=== PATIENT | female | born 2000 | race Hispanic/Latino ===

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

== ENCOUNTER → 2019-01-07 | Outpatient (CLI) | payer OTHER ==
[~2019-01-07] MED LIST changes: -DOCU100C16 PO; -FERR325T18 PO; -FOLI1TAB11 PO; -IBUP80TA PO; -LEVO2TA PO; -PERCOCET PO; -SYNT50TA PO
--- NOTE | 2019-01-08 07:20 | REP ---
TWIN OB ULTRASOUND: Real-time sonographic evaluation of the gravid uterus is performed. There is a living intrauterine diamniotic/monochorionic twin gestation. Placenta is posterior and grade 0. There is no previa or abruption. Cervix is closed and measures 3.2 cm in length. The estimated gestational age is 25 weeks 4 days, with concordant growth of each fetus. The estimated date of confinement is 04/27/2019. FETUS A: BPD 65 mm = 26 weeks 3 days, 66th percentile HC 245 mm = 26 weeks 4 days, 70th percentile AC 207 mm = 25 weeks 2 days, 44th percentile FL 49 mm = 26 weeks 2 days, 65th percentile HC/AC ratio 1.18. Estimated weight 859 grams, 49th percentile heart rate 147 beats per minute. Amniotic fluid within normal limits with the deepest pocket of fluid 3.8 cm. S/D ratio: 3.66 RI: 0.73 position: Vertex on the maternal left side. SEEN/GROSSLY UNREMARKABLE Lateral ventricles Yes Posterior fossa Yes Upper lip No Four-chamber heart Yes LVOT Yes RVOT Yes Stomach Yes Cord insertion Yes Three vessel cord Yes Kidneys Yes Bladder Yes Spine Yes FETUS B: BPD 63 mm = 25 weeks 4 days, 49th percentile HC 235 mm = 25 weeks 4 days, 49th percentile AC 209 mm = 25 weeks 3 days, 47th percentile FL 47 mm = 25 weeks 5 days, 53rd percentile HC/AC ratio 1.12. Estimated weight 826 grams 42nd percentile heart rate: 150 beats per minute. S/D ratio: 3.78 RI: 0.74 position: Transverse with head towards the maternal right side. Amniotic fluid within normal limits with the deepest pocket of fluid 4.2 cm. SEEN/GROSSLY UNREMARKABLE Lateral ventricles Yes Posterior fossa Yes Upper lip Yes Four-chamber heart Yes LVOT Yes RVOT Yes Stomach Yes Cord insertion Yes Three vessel cord Yes Kidneys Yes Bladder Yes Spine Yes Electronically Signed by Nick Bhat MD 01/09/2019 07:57 A
== END ==
LOC: M RAD 15:28
PROVIDERS: ATTEND Obstetrics & Gynecology
DX: Z34.82 Encounter for supervision of other normal pregnancy, second trimester (principal)

== ENCOUNTER → 2019-02-04 | Outpatient (CLI) | payer OTHER ==
--- NOTE | 2019-02-04 17:53 | REP ---
TWIN OB ULTRASOUND: Real-time sonographic evaluation of the gravid uterus performed. There is a living diamniotic monochorionic twin gestation. Placenta posterior and fundal and grade 1 with no previa or abruption. Estimated gestational age is 29 weeks 4 days, EDC 04/18/2019. There is concordant growth. Fetus A: BPD 77 mm = 31 weeks 0 days, 69th percentile HC 275 mm = 30 weeks 0 days, 56th percentile AC 252 mm = 29 weeks 3 days, 46th percentile FL 57 mm = 30 weeks 0 days, 56th percentile HC/AC ratio 1.09. Estimated weight 1452 grams, 46th percentile. heart rate 169 beats per minute. Amniotic fluid within normal limits, deepest pocket of fluid 3.7 cm. S/D ratio 2.78 and RI 0.64. Visualized anatomy today includes four chamber heart, left ventricular outflow tract, stomach, cord insertion, three vessel cord, kidneys and bladder which are all grossly unremarkable. position vertex on the maternal left side. Fetus B: BPD 73 mm = 29 weeks 2 days, 41st percentile HC 273 mm = 29 weeks 5 days, 53rd percentile AC 251 mm = 29 weeks 2 days, 45th percentile FL 55 mm = 29 weeks 1 day, 41st percentile HC/AC ratio 1.08. Estimated weight 1375 grams, 36th percentile. heart rate 157 beats per minute. Amniotic fluid within normal limits, deepest pocket of fluid 4 cm. S/D ratio 2.69 and RI 0.63. Visualized anatomy today includes four chamber heart, stomach, cord insertion, three vessel cord, kidneys and bladder which are all grossly unremarkable. position vertex on the maternal right side. IMPRESSION: Appropriate concordant growth as described above. Electronically Signed by Nick Bhat MD 02/05/2019 06:19 P
== END ==
LOC: M RAD 15:14
PROVIDERS: ATTEND Obstetrics & Gynecology
DX: O30.033 Twin pregnancy, monochorionic/diamniotic, third trimester (principal); Z3A.29 29 weeks gestation of pregnancy

== ENCOUNTER 2019-03-01 04:11 | Outpatient (CLI) | payer OTHER ==
[2019-03-01] VITALS (8 sets, daily range): BP systolic 94–118; BP diastolic 46–62
[~2019-03-01] VITALS: Ht 154.9 cm; Wt 78.7 kg
--- NOTE | 2019-03-01 06:44 | IPNPDOC ---
Text Note Date of Service The patient was seen on 03/01/19. NOTE patient is a 18 yo @ 33+1wks with mono/di twins gestation presents to l&d with regular painful contractions that started about 1 hr ago. Patient states she has urge to poop. denies LOF/VB. patient desires to have section for delivery. vitals: normal nad abd: gravid, soft, nt fhtA: 150/mod luisa/pos accel/no decel fhtB: 140/mod va/pos accel/no decel toco:ctx q2-5mins ce: fingertip/50/0, soft, posterior a/p patient with contractions. continue to monitor. recheck in two hours. SARAH MORALES DO Mar 01, 2019 04:38
[2019-03-01] MEDS ORDERED: LACTATED RINGER'S 1000 ML IV STA (06:47)
[2019-03-01 07:36] LABS: HEMATOCRIT 27.4 % (36.0-47.0); HEMOGLOBIN 8.8 g/dl (12.0-15.5); MEAN CORPUSCULAR HEMOGLOBIN 27.8 pg (27.0-33.0); MEAN CORPUSCULAR HGB CONC 32.1 g/dl (32.0-36.5); MEAN CORPUSCULAR VOLUME 86.7 fl (80.0-96.0); PLATELET COUNT, AUTOMATED 180 10^3/uL (150-450); RED BLOOD COUNT 3.16 10^6/uL (4.00-5.40); WHITE BLOOD COUNT 9.8 10^3/uL (4.0-10.0)
[2019-03-01] MEDS: LR 1,000 ML IV SCH ×2 (08:24→16:33)
[2019-03-01] MEDS ORDERED: BACITRACIN OINT 30GM TOP SCH (09:00)
[2019-03-01] MEDS ORDERED: BETAMETHASONE SOLUSPAN 6MG/ML INJ 5ML (J0702) IM SCH ×2 (09:00→21:00)
[2019-03-01 09:23] LABS: HEMATOCRIT 25.6 % (36.0-47.0); MEAN CORPUSCULAR HEMOGLOBIN 27.8 pg (27.0-33.0); MEAN CORPUSCULAR HGB CONC 31.3 g/dl (32.0-36.5); MEAN CORPUSCULAR VOLUME 88.9 fl (80.0-96.0); PLATELET COUNT, AUTOMATED 162 10^3/uL (150-450); RED BLOOD COUNT 2.88 10^6/uL (4.00-5.40)
[2019-03-01 10:23] LABS: ALT/SGPT 8 U/L (12-78); BILIRUBIN,TOTAL 0.3 MG/DL (0.2-1.0); CREATININE FOR GFR 0.52 MG/DL (0.55-1.30); LDH LACTATE DEHYDROGENASE 241 U/L (84-246); URIC ACID 4.8 MG/DL (2.6-6.0)
[2019-03-01 11:36] LABS: TOTAL PROTEIN,RANDOM URINE 51.5 MG/DL (0.0-12.0)
--- NOTE | 2019-03-01 20:19 | IPN ---
DATE: 03/01/2019 This lady is a 18-year-old, 2, para 0 who came in at 33 and one weeks' of gestation with history of monochorionic/diamniotic twins and she was having cramps as well as some irregular type, painful contractions. She had no vaginal bleeding or loss of fluid. On evaluation when she first came in twin A was vertex. heart was 150. Accelerations were noted. No decelerations. Twin B was 140, moderate variability with accelerations noted. On initial admission she was at fingertip, 50%, and soft and very posterior. She was evaluated several hours later and she was having some pelvic pressure and she was reevaluated and found to be loose, 1 cm, 50%, soft, in mid position. The plan was to attempt to make her steroid complete. If she went into active labor, she requested to have an elective primary section and status of GBS is unknown, we would treat her prophylactically. Further evaluation investigation revealed that her CBC initially was 8.8, hematocrit 27.4 and platelets were 180. She had no history of anemia in the past. Reevaluation 2 hours later, her hemoglobin was 8.0, hematocrit 25.6 and platelets were 162 and she was asymptomatic and there was no evidence of bleeding. We elected to evaluate her regarding preeclampsia and on evaluating her chemistry her uric acid was 4.8. Liver enzymes were low. Her urine protein/creatinine ratio was 0.22 with a random creatinine of 187 and total random protein of 51.5. The patient was having intermittent type contractions, basically uterine irritability, and the plan at the present time was to try and make her steroid complete. If so, we would reevaluate the cervix after she is steroid complete, which will take place at 2100 hours, 03/01/2019. The patient is accepting of this plan of management. Neonatology will be notified. At the present time, the babies are no distress. No regular contractions, mostly tightenings, and safe to proceed.
[2019-03-02 01:14] VITALS: BP 113/53
[2019-03-02 06:17] VITALS: BP 101/48
[2019-03-02 06:58] VITALS: BP 97/46
--- NOTE | 2019-03-02 19:31 | DSES ---
DATE OF ADMISSION: 03/01/2019 DATE OF DISCHARGE: 03/02/2019 This lady is a 18-year-old 2, para 0 who came in at 33 weeks and 1 day with history of monochorionic diamniotic twins and she was having some cramps and some uterine irritability and she says she was having painful contractions. She had no vaginal bleeding or loss. She was evaluated initially when she came. Twins were appropriate for size, weight, hearts and accelerations were noted. She did have a fingertip posteriorly 50% and she was evaluated several hours later and found to be 1 cm. The plan of management was to attempt to make her steroid complete. She requested to have a primary section and initially when she was evaluated her CBC showed she had hemoglobin 8.8 and hematocrit 27.4, platelets were 180. After rehydration they redid her CBC and her hemoglobin was 8.0, hematocrit 25.6 and platelets were 162 when there has been no evidence of bleeding. We elected to go ahead and do a pre-eclampsia profile. Her protein/creatinine ratio was 0.23. Rest of the chemistry was normal. Her platelets had dropped somewhat but because of hydration. She was given two lots of steroids to make her steroid complete. She was monitored overnight. She occasionally has a contraction here and there but nothing significant. She also feels pain on one side when the baby moves however this is strictly movement. She slept overnight. She had no evidence of bleeding or cramping. Re-examination this morning basically the cervix is unchanged at 1 cm, very posterior, vertex A, breech B, with no evidence of uterine irritability, as mentioned, occasional contraction. The patient is comfortable in going home. She is planned on discharge for today and has a followup appointment at [facility]. Our plan of management is to keep her as long as possible and should she make 37 weeks, book her for a primary elective section. All questions were answered. The rest of the examination was unremarkable. She was normocephalic, atraumatic. Neck full range of motion. Pupils equal and reactive to light. Distal pulses were symmetric. No evidence of DVT, PE or superficial phlebitis. Chest was clear bilaterally to bases. No wheezes or rhonchi. No CVA tenderness. Abdomen: Appropriate symphysis fundus height. Four quadrant bowel sounds are noted. Again, as mentioned, digital examination is basically with no change in her cervix in the last 24 hours. Blood pressure on discharge was 97/46, respirations were 18, pulse 111, temperature is 98.2. In summary, we have monochorionic diamniotic twins, steroid complete, uterine irritability, dehydration and anemia. The patient will followup in the clinic.
== END 2019-03-02 08:35 | disposition home or self-care (01) ==
LOC: M LDO 04:11
PROVIDERS: ATTEND Obstetrics & Gynecology
DX: O30.033 Twin pregnancy, monochorionic/diamniotic, third trimester (principal); Z3A.33 33 weeks gestation of pregnancy
CPT/HCPCS: 36415; 59025; 82247; 82565; 82570; 83615; 84156; 84450; 84460; 84550; 85027; 86850; 86900; 86901; 96372; G0463; J0702

== ENCOUNTER → 2019-03-04 | Outpatient (CLI) | payer OTHER ==
--- NOTE | 2019-03-05 04:51 | REP ---
Clinical: Twin gestation. Growth evaluation Comparison: 02/04/2019 . Findings: Examination demonstrates diamniotic monochorionic twin gestation. Cervix measures 3.1 cm in length and appears closed. Placenta identified posterior fundally and grade II without evidence for placenta previa. Gestational age by LMP at 33 weeks 4 days with estimated date of delivery 04/18/2019 . TWIN A: Twin A identified in cephalic presentation along the maternal left side. motion is appreciated. Amniotic fluid volume is normal and the deepest pocket measures 3.48 cm. FHR equals 171 beats per minute. Gestational age by current measurements: 34 weeks 2 days . Estimated weight 2380 grams ( 57 percentile). Limited anatomical assessment without obvious abnormality. ------- TWIN B: Twin B identified in transverse (head to maternal left) presentation along the maternal right side. motion is appreciated. Amniotic fluid volume is normal and the deepest pocket measures 3.33 cm. FHR equals 150 beats per minute. Gestational age by current measurements: 32 weeks 5 days . Estimated weight 2177 grams ( 41st percentile). Limited anatomical assessment without obvious abnormality. Impression: Diamniotic monochorionic twin gestation demonstrating growth as described above. No gross abnormalities are identified. Electronically Signed by Matthew Paul MD 03/05/2019 04:43 A
== END ==
LOC: M RAD 15:36
PROVIDERS: ATTEND Obstetrics & Gynecology
DX: Z34.83 Encounter for supervision of other normal pregnancy, third trimester (principal); Z3A.33 33 weeks gestation of pregnancy

== ENCOUNTER → 2019-03-18 | Outpatient (CLI) | payer OTHER ==
--- NOTE | 2019-03-18 20:15 | REP ---
TWIN OB ULTRASOUND: Real-time sonographic evaluation of the gravid uterus is performed. There is a living diamniotic monochorionic twin gestation, estimated gestational age 35 weeks 4 days, EDC 04/18/2019. There is somewhat less than expected growth of both twins. Placenta is fundal and grade 2 with no previa or abruption. Transabdominal measurement of closed cervical length is 2.5 cm. FETUS A: BPD 86 mm = 34 weeks 4 days, 35th percentile HC 313 mm = 35 weeks 1 days, 43rd percentile AC 310 mm = 34 weeks 6 days, 40th percentile FL 70 mm = 35 weeks 5 days, 52nd percentile HC/AC ratio 1.01. Estimated weight 2597 grams, 41st percentile. On prior study of 03/04/2019 estimated weight was at the 57th percentile. heart rate 146 beats per minute. Amniotic fluid within normal limits, deepest pocket of fluid 3.8 cm. S/D ratio 3.66 and RI 0.73. The upper lip, stomach, three vessel cord, kidneys and bladder are visualized and are grossly unremarkable. position is vertex on the maternal left side. FETUS B: BPD 82 mm = 33 weeks 1 day, 14th percentile HC 314 mm = 35 weeks 2 days, 41st percentile AC 305 mm = 34 weeks 3 days, 33rd percentile FL 65 mm = 33 weeks 3 days, 17th percentile HC/AC ratio 1.03. Estimated weight 2350 grams, 24th percentile, on prior study of 03/04/2019, estimated weight was at the 41st percentile. heart rate 143 beats per minute. Amniotic fluid within normal limits, deepest pocket of fluid 4.8 cm. S/D ratio 3.5, RI 0.71. stomach, three vessel cord, kidneys, bladder and spine are visualized and are grossly unremarkable. position vertex on the maternal right side. IMPRESSION: Diamniotic monochorionic twin gestation with somewhat less than expected growth as discussed in detail above, but still within normal range. Electronically Signed by Nick Bhat MD 03/19/2019 03:41 P
== END ==
LOC: M RAD 14:54
PROVIDERS: ATTEND Obstetrics & Gynecology
DX: Z34.83 Encounter for supervision of other normal pregnancy, third trimester (principal); Z3A.35 35 weeks gestation of pregnancy

== ENCOUNTER 2019-03-31 06:56 | Inpatient (IN) | payer OTHER ==
[2019-03-31] VITALS (19 sets, daily range): BP systolic 108–142; BP diastolic 62–87
[~2019-03-31] VITALS: Ht 157.5 cm; Wt 84.1 kg
[~2019-03-31 06:56] MED LIST changes: +FOLI1TAB11 PO; +LEVO2TA PO; +SYNT50TA PO
[2019-03-31] MEDS ORDERED: ceFAZolin SOD 2 GM in IV 1 EA IV ONE (07:45)
[2019-03-31] MEDS ORDERED: BICITRA 30ML SOLN UDC PO ONE (07:45)
[2019-03-31] MEDS ORDERED: LR 500 ML IV SCH (08:00)
[2019-03-31 08:39] LABS: HEMATOCRIT 24.9 % (36.0-47.0); HEMOGLOBIN 7.7 g/dl (12.0-15.5); MEAN CORPUSCULAR HGB CONC 30.9 g/dl (32.0-36.5); MEAN CORPUSCULAR VOLUME 84.1 fl (80.0-96.0); PLATELET COUNT, AUTOMATED 175 10^3/uL (150-450); RED BLOOD COUNT 2.96 10^6/uL (4.00-5.40); WHITE BLOOD COUNT 7.1 10^3/uL (4.0-10.0)
[2019-03-31] MEDS ORDERED: diphenhydrAMINE INJ 50MG/ML VIAL (J1200) IV STA (09:32)
[2019-03-31] MEDS ORDERED: ACETAMINOPHEN 500 MG TAB PO ONE (09:45)
--- NOTE | 2019-03-31 10:02 | IPNPDOC ---
Text Note Date of Service The patient was seen on 03/31/19. NOTE Blood transfusion Pre-op H/H 7.7/24.9, decreased from prior Hgb of 8. I discussed with anesthesia Dr. Peña his recommendation that patient receive 2 units pRBCs now and have 2 units available in the OR. Goal pre-op Hct is >30. Will transfuse 2u pRBCs now and then re-check H/H 1 hour after conclusion of transfusion. IV benadryl and PO tylenol ordered to give prior to transfusion. Discussed with patient recommendation and plan for transfusion and she is amenable. She previously signed consent form in the office. Dr. Marcia Noel MD VS,Mary Ellen, I+O Mary Ellen AARON, I+O Laboratory Tests 03/31/19 08:14 Marcia Noel MD Mar 31, 2019 10:02
[2019-03-31] MEDS ORDERED: BUPIVACAINE HCL 0.25% 30 ML VIAL As Ordered ONE (13:58)
[2019-03-31 14:12] LABS: HEMATOCRIT 28.7 % (36.0-47.0); HEMOGLOBIN 9.1 g/dl (12.0-15.5); MEAN CORPUSCULAR HEMOGLOBIN 26.8 pg (27.0-33.0); MEAN CORPUSCULAR HGB CONC 31.7 g/dl (32.0-36.5); MEAN CORPUSCULAR VOLUME 84.7 fl (80.0-96.0); PLATELET COUNT, AUTOMATED 160 10^3/uL (150-450); RED BLOOD COUNT 3.39 10^6/uL (4.00-5.40); WHITE BLOOD COUNT 7.7 10^3/uL (4.0-10.0)
[2019-03-31] MEDS: LR 1,000 ML IV SCH ×2 (17:00→21:00)
[2019-03-31 17:41] LABS: HEMATOCRIT 30.6 % (36.0-47.0); HEMOGLOBIN 9.8 g/dl (12.0-15.5); MEAN CORPUSCULAR HEMOGLOBIN 26.8 pg (27.0-33.0); MEAN CORPUSCULAR VOLUME 83.8 fl (80.0-96.0); PLATELET COUNT, AUTOMATED 165 10^3/uL (150-450); RED BLOOD COUNT 3.65 10^6/uL (4.00-5.40); WHITE BLOOD COUNT 7.6 10^3/uL (4.0-10.0)
[2019-03-31] MEDS ORDERED: ONDANSETRON 4MG/2ML VIAL (J2405) As Ordered ONE (18:42)
[2019-03-31] MEDS ORDERED: OXYTOCIN INJ 10 UNITS/ML VIAL (J2590) As Ordered ONE (18:42)
[2019-03-31] MEDS ORDERED: KETOROLAC 60 MG/2 ML VIAL (J1885) As Ordered ONE (18:42)
[2019-03-31] MEDS ORDERED: MORPHINE PRES-FREE INJ 10 MG/10 ML VIAL (J2274) As Ordered ONE (18:42)
[2019-03-31] MEDS ORDERED: METOCLOPRAMIDE INJ 10MG/2ML VIAL (J2765) IV PRN (18:47)
[2019-03-31] MEDS ORDERED: diphenhydrAMINE INJ 50MG/ML VIAL (J1200) IV PRN (18:47)
[2019-03-31] MEDS ORDERED: ONDANSETRON 4MG/2ML VIAL (J2405) IV PRN ×2 (18:47→21:00)
[2019-03-31] MEDS ORDERED: NALBUPHINE HCL 10 MG/ML AMP (J2300) IV PRN (18:47)
[2019-03-31] MEDS ORDERED: NALOXONE INJ 0.4 MG/1 ML VIAL (J2310) IV PRN ×2 (18:47)
[2019-03-31] MEDS ORDERED: miSOPROStol 200 MCG TAB (S0191) PR ONE (20:00)
[2019-03-31] MEDS ORDERED: OXYTOCIN DRIP 30 UNITS in IV 1 EA IV SCH (20:24)
[2019-03-31] MEDS ORDERED: MEASLES,MUMPS,RUBELLA VACCINE INJ (MMR-II) (90707) SC SCH (20:30)
[2019-03-31] MEDS ORDERED: PERCOCET 5MG/325MG TAB PO PRN ×3 (20:30→21:00)
[2019-03-31] MEDS ORDERED: RHOGAM 300 MCG (1500 IU) INJ (J2790) IM SCH (20:30)
[2019-03-31] MEDS ORDERED: METHYLERGONOVINE MALEATE 0.2 MG/ML VIAL (J2210) IM ONE (20:30)
[2019-03-31] MEDS ORDERED: OXYTOCIN 30 UNITS IN 0.9% NaCl 500ML IV BAG (J2590) As Ordered ONE (20:55)
[2019-03-31] MEDS ORDERED: HYDROMORPHONE HCL 0.5 MG/ 0.5 ML SYRINGE (J1170 PER 1) IV PRN (21:00)
[2019-03-31] MEDS: DOCUSATE SODIUM 100 MG CAP PO SCH (21:00)
[2019-03-31] MEDS ORDERED: fentaNYL 100 MCG/2 ML INJECTION (J3010) IV PRN (21:00)
[2019-04-01] VITALS (10 sets, daily range): BP systolic 101–120; BP diastolic 54–71
[2019-04-01] MEDS ORDERED: ACETAMINOPHEN *IV* 1,000 MG in IV 1 EA IV ONE (01:00)
[2019-04-01] MEDS ORDERED: PROMETHAZINE INJ 25 MG/ML VIAL (J2550) IV ONE (01:00)
[2019-04-01] MEDS: LR 1,000 ML IV SCH ×3 (01:00→17:00)
[2019-04-01 02:04] LABS: HEMATOCRIT 33.7 % (36.0-47.0); HEMOGLOBIN 10.7 g/dl (12.0-15.5); MEAN CORPUSCULAR HEMOGLOBIN 27.2 pg (27.0-33.0); MEAN CORPUSCULAR HGB CONC 31.8 g/dl (32.0-36.5); MEAN CORPUSCULAR VOLUME 85.8 fl (80.0-96.0); PLATELET COUNT, AUTOMATED 146 10^3/uL (150-450); RED BLOOD COUNT 3.93 10^6/uL (4.00-5.40); WHITE BLOOD COUNT 15.4 10^3/uL (4.0-10.0)
[2019-04-01] MEDS: KETOROLAC 30 MG/ML VIAL (J1885) IV SCH ×3 (02:26→13:53)
[2019-04-01] MEDS ORDERED: ACETAMINOPHEN *IV* 1,000 MG in IV 1 EA IV PRN (03:30)
[2019-04-01] MEDS: DOCUSATE SODIUM 100 MG CAP PO SCH ×2 (07:54→22:28)
[2019-04-01] MEDS: PRENATAL VITAMINS CHEWABLE TABLET PO SCH (07:54)
--- NOTE | 2019-04-01 10:10 | IPNPDOC ---
Progress Note Date of Service: Apr 01, 2019 Day#: 1 Progress Note POD 1 SUBJECT: Alem is a 18yo [id number] s/p uncomplicated PLTCS on 03/31 for mono- di twins at 37wk, doing well post-op/ day # 1. Significantly, she had admission H/H of 7.7/24.9, so surgery was delayed yesterday until Hct was >30 which took 3 units transfusion of pRBCs total. She also received 1 more unit of pRBCs in the OR when she had some atony with continued bleeding (total EBL 800ml). In the OR she received IV pitocin/IM methergine/AR cytotec with then resolution of atony and good uterine tone. H/H was re-checked 6 hours after surgery and was 10.7/33.7 at 0145 last night. Last night Alem struggled with nausea/vomiting and received zofran, reglan and phenergan with then resolution of n/v. Since that time, she has been sleeping. She has not yet ambulated. She is drinking fluids but not yet eating. Bottle feeding by choice. Lochia is minimal. Rivera still in place draining concentrated urine. Pain is well controlled. No f/c/CP/SOB. OBJECTIVE: VITAL SIGNS: Within normal limits, afebrile. Alert and oriented times three. Pale appearing. Abdomen: Fundus firm at U-2. Soft, appropriately tender to palpation with no rebound/guarding. Pfannenstiel incision covered by dry sterile dressing. Extremities: no pain with palpation of calves Labs: Admission H/H: 7.7/24.9 Pre-op H/H (s/p transfusion 3u pRBCs): 9.8/30.6 Post-op H/H: 10.7/33.7 ASSESSMENT: Alem is a 18yo [id number] s/p uncomplicated PLTCS on 03/31 for mono-di twins at 37wk after transfusion of pRBCs to obtain Hct >30, doing well post-op/ day # 1. Vitals within normal limits, afebrile, hemodynamically stable with no evidence of infection. PLAN: 1. Routine post-op care 2. Percocet and Motrin for pain. Colace for bowel regimen. 3. Encourage ambulation and oral hydration 4. Rivera to be removed 24hr post-op with 4hr due to void 5. Ok to shower tonight after taking off outer bandage 6. Repeat CBC tomorrow morning Dr. Marcia Noel MD VS, I&O, 24H, Fishbone Vital Signs/I&O Vital Signs Date Time Temp Pulse Resp B/P (MAP) Pulse Ox O2 Delivery O2 Flow Rate FiO2 04/01/19 05:52 97.8 68 16 110/67 (81) 97 Room Air I&O- Last 24 Hours up to 6 AM 04/01/19 06:00 Intake Total 3675 ml Output Total 2300 ml Balance 1375 ml Laboratory Data 24H LABS Laboratory Tests 2 03/31/19 13:56: Nucleated Red Blood Cells % (auto) 0.8H 03/31/19 17:30: Nucleated Red Blood Cells % (auto) 0.8H 04/01/19 01:44: Nucleated Red Blood Cells % (auto) 0.3H CBC/BMP Laboratory Tests 03/31/19 13:56 03/31/19 17:30 04/01/19 01:44 Marcia Noel MD Apr 01, 2019 10:10
--- NOTE | 2019-04-01 11:20 | RO ---
DATE OF PROCEDURE: 03/31/2019 INDICATIONS FOR OPERATION: Alem is a 18-year-old G1 now P1-0-0-2 who had mono di twin gestation at 37 weeks and was counseled in the office regarding mode of delivery. The twins were known to be cephalic, cephalic. She was counseled on the opportunity for induction of labor but she declined this and requested primary low transverse section. Significantly on day of admission for the surgery her hemoglobin was 7.7 and the anesthesia provider recommended transfusion of packed red blood cells to increase her hematocrit greater than 30 prior to surgery. So we spent the day performing blood transfusion. Ultimately she needed 3 units of packed red blood cells to increase her Hct to greater than 30 and when Hct was appropriate, we proceeded to the operating room. PREOPERATIVE DIAGNOSES: 1. [place]-di twins at 37 weeks. 2. Anemia requiring blood transfusion prior to surgery. POSTOPERATIVE DIAGNOSES: 1. [place]-di twins at 37 weeks. 2. Anemia requiring blood transfusion prior to surgery. OPERATION PERFORMED: Primary low transverse section. SURGEON: Dr. Marcia Noel. ONLINE MEDIA BUYER: Dr. Argentina Draper. ANESTHESIA: Spinal. DESCRIPTION OF FINDINGS: Both infants were female. Twin A had Apgars 9 and 9, was in cephalic presentation, weight 6.9 pounds 2970 grams. There was light meconium stained fluid on entry into the amniotic sac for twin A. For twin B, there was clear fluid, Apgars 9 and 9, weight 6 pounds 0 ounces. Twin B also was in cephalic presentation. There was atony after delivery of the infants and repair of the hysterotomy that required uterotonics. The uterus, fallopian tubes and ovaries were normal in appearance. MATERIAL FORWARDED TO THE LAB FOR EXAMINATION: Placenta. INFECTION CLASSIFICATION: II ESTIMATED BLOOD LOSS: 800 mL IV FLUIDS: 500 mL of lactated Ringer with 20 units of Pitocin. She also received 1 unit of packed red blood cells in the operating room. URINE OUTPUT: 100 ml DESCRIPTION OF OPERATION: After obtaining informed consent, the patient was taken to the operating room. She had reactive NSTs intermittently throughout the day while receiving her blood transfusion. Spinal anesthesia was administered and she had Rivera catheter and bilateral sequential compression devices placed. She received 2 grams of IV Ancef prophylactically. She was prepped and draped in normal sterile fashion in the dorsal supine position with a left lateral tilt. Time-out was performed to confirm patient name, date of , procedure and indication. The team was in agreement. Spinal anesthesia was found to be adequate using an Allis clamp. A Pfannenstiel incision was made with a scalpel and carried through to the underlying layer of fascia. The fascia was incised in the midline and the incision was extended laterally with Gan scissors. Superior and inferior aspects of the fascial incision were grasped with Rubin clamps, elevated and the underlying rectus muscles were dissected off bluntly and sharply. The peritoneum was entered digitally and the rectus muscles were in the midline. The peritoneal incision was extended superiorly and inferiorly with good visualization of the bladder. Bladder blade was inserted and vesicouterine peritoneum was identified, grasped with pickups and entered sharply with Metzenbaum scissors. The incision was extended laterally and the bladder flap was created digitally. Bladder blade was re-inserted and the lower uterine segment was scored in a transverse fashion with a scalpel. Uterus was entered bluntly and the incision was extended with traction. Bladder blade was removed and twin A's head was elevated to the level of the incision. When the amniotic sac was broken with an Allis clamp, there was light meconium stained fluid noted. Fundal pressure was applied and the head was delivered atraumatically in the occiput anterior (OA) position. Anterior shoulder, posterior shoulder and corpus were delivered without difficulty. Infant was vigorous. Nose and mouth were suctioned with bulb suction, cord was clamped times two and cut and twin A was handed off to the awaiting nursing team. At that time, we then proceeded with delivery of twin B using an Allis to break the second amniotic sac and with fundal pressure, twin B's head was delivered atraumatically in the occiput anterior (OA) position. Anterior shoulder, posterior shoulder and corpus were delivered without difficulty. Baby was vigorous and nose and mouth were suctioned with bulb suction and cord was clamped times two and cut and the infant was handed off to waiting nursing team. Placentas were removed with traction on the umbilical cord and uterine massage and the uterus was then exteriorized and cleared of all clot and debris. Notably the anterior wall of the uterus was somewhat thin likely due to where the placentas had been adherent. She had pretty brisk bleeding from within the uterus related to atony. Uterine massage was performed and I repaired the uterine incision using 0 Vicryl suture in a running locking fashion. A second layer of 0 Monocryl was used to close the hysterotomy incision in an imbricating fashion. We continued to massage the uterus while she received IV Pitocin per protocol. At that time I also requested the anesthesia provider administer 0.2 mg of IM Methergine and with these uterotonics and continued massage, she gained good uterine tone. Uterine incision was inspected again and hemostasis noted. Posterior cul-de-sac was irrigated and the uterus returned to the abdomen. Gutters were cleared of all clots. Peritoneum was closed using #3-0 Vicryl suture in a running fashion. Fascia was re-approximated using 0 Vicryl suture in a running fashion. Subcutaneous tissue was copiously irrigated. Balbina fascia was reapproximated using #3-0 Vicryl suture in a running fashion. Skin edges were re-approximated using three inverted interrupted stitches using #3-0 Vicryl suture followed by a running subcuticular stitch using #4-0 Monocryl suture. The incision was cleaned using wet lap, dried with a dry lap. Steri-Strips were applied in the usual fashion perpendicular to the Pfannenstiel incision. Two strips of Telfa were layered on top of the Steri-Strips followed by a dry sterile towel. Surgical drapes were removed. Sterile towel was removed. Pressure dressing was applied over the entire surgical incision. At that point I then cleared the vagina of blood clot and evacuated the lower uterine segment of blood clot as well. She had probably another 100 mL of clot present but the uterus firmed up nicely after evacuation of that clot and I placed 800 mcg of Cytotec rectally for prophylaxis against any further bleeding. Fundus was firm at U -1 cm. All counts were then correct times two. The procedure was without complications and the patient tolerated the procedure well. She was taken to the recovery room on labor and delivery in stable condition. The patient was given 1 unit of packed red blood cells in the operating room when she was having atony and was being given uterotonics so we could stay ahead of the curve given that she had already required transfusion of 3 units packed red blood cells prior to surgery. NELL
[2019-04-01] MEDS: IBUPROFEN 800 MG TAB PO SCH (22:28)
[2019-04-02 02:19] VITALS: BP 99/59
[2019-04-02 06:16] VITALS: BP 108/61
[2019-04-02] MEDS: IBUPROFEN 800 MG TAB PO SCH ×3 (06:47→22:32)
[2019-04-02 07:52] LABS: HEMATOCRIT 26.4 % (36.0-47.0); MEAN CORPUSCULAR HEMOGLOBIN 26.8 pg (27.0-33.0); MEAN CORPUSCULAR HGB CONC 31.1 g/dl (32.0-36.5); MEAN CORPUSCULAR VOLUME 86.3 fl (80.0-96.0); PLATELET COUNT, AUTOMATED 136 10^3/uL (150-450); RED BLOOD COUNT 3.06 10^6/uL (4.00-5.40); WHITE BLOOD COUNT 12.5 10^3/uL (4.0-10.0)
[2019-04-02 07:57] LABS: HEMOGLOBIN 8.2 g/dl (12.0-15.5)
--- NOTE | 2019-04-02 08:56 | IPNPDOC ---
Progress Note Date of Service: Apr 02, 2019 Day#: 2 Progress Note POD 2 SUBJECT: Alem is a 18yo [id number] s/p uncomplicated PLTCS on 03/31 for mono- di twins at 37wk, doing well post-op/ day # 2. Significantly, she had admission H/H of 7.7/24.9, so surgery was delayed until Hct was >30 which took 3 units transfusion of pRBCs total. She also received 1 more unit of pRBCs in the OR when she had some atony with continued bleeding (total EBL 800ml). In the OR she received IV pitocin/[place] methergine/[place] cytotec with then resolution of atony and good uterine tone. Alem is feeling much better. She had aceves removed last night and has been voiding spontaneously without issue. Has had a bowel movement and tolerating regular diet. Ambulating without lightheadedness/dizziness. Bottle feeding by choice. Lochia is minimal. Pain is well controlled. No f/c/CP/SOB. OBJECTIVE: VITAL SIGNS: Within normal limits, afebrile. Alert and oriented times three. Pale appearing. Abdomen: Fundus firm at U-2. Soft, appropriately tender to palpation with no rebound/guarding. Pfannenstiel incision is clean/dry/intact with steri strips overlying without evidence of erythema/induration/drainage. Labs: Admission H/H: 7.7/24.9 Pre-op H/H (s/p transfusion 3u pRBCs): 9.8/30.6 POD 1 H/H: 10.7/33.7 POD 2 H/H: 8.2/26.4 ASSESSMENT: Alem is a 18yo [id number] s/p uncomplicated PLTCS on 03/31 for mono-di twins at 37wk after transfusion of pRBCs to obtain Hct >30, doing well post-op/ day # 2. Vitals within normal limits, afebrile, hemodynamically stable with no evidence of infection. PLAN: 1. Routine post-op care 2. Percocet and Motrin for pain. Colace for bowel regimen. 3. Regular diet 4. Encourage ambulation and oral hydration 5. Discussed breast feeding at length to encourage, but patient is currently bottle feeding 6. Encourage use of IS 7. PO iron 8. Possible discharge home tomorrow if meeting all criteria Dr. Marcia Noel MD VS, I&O, 24H, Fishbone Vital Signs/I&O Vital Signs Date Time Temp Pulse Resp B/P (MAP) Pulse Ox O2 Delivery O2 Flow Rate FiO2 04/02/19 06:16 98.0 63 18 108/61 (77) 04/01/19 18:00 99 Room Air I&O- Last 24 Hours up to 6 AM 04/02/19 06:00 Output Total 1475 ml Balance -1475 ml Laboratory Data 24H LABS Laboratory Tests 2 04/02/19 07:34: Nucleated Red Blood Cells % (auto) 0.3H CBC/BMP Laboratory Tests 04/02/19 07:34 Marcia Noel MD Apr 02, 2019 08:56
[2019-04-02] MEDS: DOCUSATE SODIUM 100 MG CAP PO SCH ×2 (08:59→20:21)
[2019-04-02] MEDS: PRENATAL VITAMINS CHEWABLE TABLET PO SCH (08:59)
[2019-04-02] MEDS ORDERED: INFLUENZA QUADRIVALENT PF VACCINE 0.5ML SYRINGE (90686) IM ONE (09:00)
[2019-04-02 10:00] VITALS: BP 117/66
[2019-04-02] MEDS: FERROUS SULFATE 325MG TAB PO SCH ×2 (10:13→20:20)
[2019-04-02 14:00] VITALS: BP 122/58
[2019-04-02 18:00] VITALS: BP 109/59
[2019-04-03] MEDS: IBUPROFEN 800 MG TAB PO SCH (06:04)
[2019-04-03 06:34] VITALS: BP 118/70
[2019-04-03] MEDS: PRENATAL VITAMINS CHEWABLE TABLET PO SCH (08:45)
[2019-04-03] MEDS: FERROUS SULFATE 325MG TAB PO SCH (08:45)
[2019-04-03] MEDS: DOCUSATE SODIUM 100 MG CAP PO SCH (08:45)
[2019-04-03] MEDS ORDERED: FERR325T18 PO (12:14)
[2019-04-03] MEDS ORDERED: DOCU100C16 PO (12:14)
[2019-04-03] MEDS ORDERED: PERCOCET PO (12:14)
[2019-04-03] MEDS ORDERED: IBUP80TA PO (12:14)
--- NOTE | 2019-04-03 12:18 | IPNPDOC ---
Progress Note Date of Service: Apr 03, 2019 Day#: 3 Progress Note POD 3 SUBJECT: Alem is a 18yo [id number] s/p uncomplicated PLTCS on 03/31 for mono- di twins at 37wk, doing well post-op/ day # 3. Significantly, she had admission H/H of 7.7/24.9, so surgery was delayed until Hct was >30 which took 3 units transfusion of pRBCs total. She also received 1 more unit of pRBCs in the OR when she had some atony with continued bleeding (total EBL 800ml). In the OR she received IV pitocin/IM methergine/[place] cytotec with then resolution of atony and good uterine tone. Alem is feeling good today. She has been voiding spontaneously without issue. Has had a bowel movement and tolerating regular diet. Ambulating without lightheadedness/dizziness. Bottle feeding by choice. Lochia is minimal. Pain is well controlled. No f/c/CP/SOB. OBJECTIVE: VITAL SIGNS: Within normal limits, afebrile. Alert and oriented times three. Abdomen: Fundus firm at U-2. Soft, appropriately tender to palpation with no rebound/guarding. Pfannenstiel incision is clean/dry/intact with steri strips overlying without evidence of erythema/induration/drainage. Extremities: 1+ edema of BLE, no pain with palpation of calves Labs: Admission H/H: 7.7/24.9 Pre-op H/H (s/p transfusion 3u pRBCs): 9.8/30.6 POD 1 H/H: 10.7/33.7 POD 2 H/H: 8.2/26.4 ASSESSMENT: Alem is a 18yo [id number] s/p uncomplicated PLTCS on 03/31 for mono-di twins at 37wk after transfusion of pRBCs to obtain Hct >30, doing well post-op/ day # 3. Vitals within normal limits, afebrile, hemodynamically stable with no evidence of infection. PLAN: 1. Discharge to home 2. Rx percocet and Motrin for pain. Colace for bowel regimen. Ferrous sulfate BID with Vitamin C for anemia. 3. Regular diet 4. Follow up appt with Dr. Noel in [facility] in 2 weeks 5. Remove steri strips in 7 days. Keep incision clean and dry. Pat dry well after showering. Activity as tolerated, vaginal rest 6 weeks and no heavy lifting. 6. Return precautions discussed: fevers/chills, pain uncontrolled with medication, foul smelling discharge or increasing pain in the abdomen, signs of wound infection such as drainage/pus/spreading redness or evidence of mastitis such as breast redness/pain in the setting of fevers/chills Dr. Marcia Noel MD VS, I&O, 24H, Fishbone Vital Signs/I&O Vital Signs Date Time Temp Pulse Resp B/P (MAP) Pulse Ox O2 Delivery O2 Flow Rate FiO2 04/03/19 06:34 98.2 74 18 118/70 (86) 04/02/19 21:45 Room Air 04/02/19 14:00 99 Marcia Noel MD Apr 03, 2019 12:18
--- NOTE | 2019-04-03 12:23 | DS.PDOC ---
Discharge Summary General Date of Admission Mar 31, 2019 at 06:56 Date of Discharge Apr 03, 2019 Attending Physician: Marcia Noel MD Discharge Summary PROCEDURES PERFORMED DURING STAY: -Transfusion 4 units total packed red blood cells -Primary low transverse section ADMITTING DIAGNOSES: 1. Severe anemia requiring blood transfusion 2. [place]-di twins at 37 weeks DISCHARGE DIAGNOSES: 1. Severe anemia requiring blood transfusion 2. [place]-di twins at 37 weeks, delivered COMPLICATIONS/CHIEF COMPLAINT: [place]-Di Twins. HISTORY OF PRESENT ILLNESS/HOSPITAL COURSE: Alem is a 18yo [id number] s/p uncomplicated PLTCS on 03/31 for mono-di twins at 37wk. Significantly, she had admission H/H of 7.7/24.9, so surgery was delayed until Hct was >30 which took 3 units transfusion of pRBCs total. She also received 1 more unit of pRBCs in the OR when she had some atony with continued bleeding (total EBL 800ml). In the OR she received IV pitocin/[place] methergine/[place] cytotec with then resolution of atony and good uterine tone. She w ent on to have a benign /post-op course. On post-operative day 3 she was desiring of discharge and meeting all criteria. Her vitals were within normal limits, and she was afebrile, hemodynamically stable with no evidence of infection. DISCHARGE MEDICATIONS: Please see below. ALLERGIES: Please see below. Physical Exam: VITAL SIGNS: Within normal limits, afebrile. Alert and oriented times three. Abdomen: Fundus firm at U-2. Soft, appropriately tender to palpation with no rebound/guarding. Pfannenstiel incision is clean/dry/intact with steri strips overlying without evidence of erythema/induration/drainage. Extremities: 1+ edema of BLE, no pain with palpation of calves LABORATORY DATA: Admission H/H: 7.7/24.9 Pre-op H/H (s/p transfusion 3u pRBCs): 9.8/30.6 POD 1 H/H: 10.7/33.7 POD 2 H/H: 8.2/26.4 DISCHARGE PLAN/INSTRUCTIONS: 1. Discharge to home 2. Rx percocet and Motrin for pain. Colace for bowel regimen. Ferrous sulfate BID with Vitamin C for anemia. 3. Regular diet 4. Follow up appt with Dr. Noel in [facility] in 2 weeks 5. Remove steri strips in 7 days. Keep incision clean and dry. Pat dry well after showering. Activity as tolerated, vaginal rest 6 weeks and no heavy lifting. 6. Return precautions discussed: fevers/chills, pain uncontrolled with medication, foul smelling discharge or increasing pain in the abdomen, signs of wound infection such as drainage/pus/spreading redness or evidence of mastitis such as breast redness/pain in the setting of fevers/chills DISCHARGE CONDITION: Stable TIME SPENT ON DISCHARGE: Greater than [address] Marcia Noel MD Vital Signs/I&Os Vital Signs Date Time Temp Pulse Resp B/P (MAP) Pulse Ox O2 Delivery O2 Flow Rate FiO2 04/03/19 06:34 98.2 74 18 118/70 (86) 04/02/19 21:45 Room Air 04/02/19 14:00 99 Discharge Medications Scheduled Docusate Sodium (Docusate Sodium) 100 Mg Capsule, 100 MG PO BID Ferrous Sulfate (Ferrous Sulfate) 325 Mg Tablet, 325 MG PO BID Ibuprofen (Ibuprofen) 800 Mg Tablet, 800 MG PO Q8H Levothyroxine Sodium (Synthroid) 50 Mcg Tablet, 1 TAB PO DAILY, (Reported) Levothyroxine Sodium (Synthroid) 200 Mcg Tablet, 200 MCG PO DAILY, (Reported) Pnv No.95/Ferrous Fum/Folic AC ( Vitamins Tablet) 1 Each Tablet, 1 TAB PO DAILY, (Reported) Scheduled PRN Oxycodone/Acetaminophen (Oxycodone-Acetaminophen 5-325) 1 Each Tablet, 1 TAB PO Q4H PRN for MILD/MODERATE PAIN (PS 1-7) Allergies Coded Allergies: senna (Verified Allergy, Intermediate, unknown, 08/23/18) Marcia Noel MD Apr 03, 2019 12:23
== END 2019-04-03 13:00 | disposition home or self-care (01) | DRG 773 ==
LOC: M LDI 06:56 → M OBS 22:05
PROVIDERS: ADMIT Obstetrics & Gynecology; ATTEND Obstetrics & Gynecology
PROC: 30233N1 Transfusion of Nonautologous Red Blood Cells into Peripheral Vein, Percutaneous Approach (ICD-10-PCS; 2019-03-31)
PROC: 10D00Z1 Extraction of Products of Conception, Low, Open Approach (ICD-10-PCS; principal; 2019-03-31 09:30)
DX: O99.02 Anemia complicating childbirth (principal); Z37.2 Twins, both liveborn; Z3A.37 37 weeks gestation of pregnancy; D64.9 Anemia, unspecified; O30.033 Twin pregnancy, monochorionic/diamniotic, third trimester; Z88.8 Allergy status to other drugs, medicaments and biological substances